=== PATIENT | male | born 1975 | race Caucasian/White ===

== ENCOUNTER 2021-11-17 05:39 | Outpatient (CLI) | payer OTHER ==
[~2021-11-17] VITALS: Ht 182.9 cm; Wt 83.9 kg
[2021-11-17] MEDS ORDERED: LAMO250T PO (10:20)
== END 2021-11-17 10:24 | disposition home or self-care (01) ==
LOC: PREOP 05:39
PROVIDERS: ATTEND Surgery
DX: Z01.818 Encounter for other preprocedural examination (principal)

== ENCOUNTER 2021-11-25 12:54 | Day surgery (SDC) | payer OTHER ==
[~2021-11-25] VITALS: Ht 182.9 cm; Wt 83.9 kg
[~2021-11-25 12:54] MED LIST: LAMO250T PO
[2021-11-25] MEDS ORDERED: LACTATED RINGERS 1,000 ML IV STA (12:56)
[2021-11-25 13:14] VITALS: BP 134/89
[2021-11-25] MEDS ORDERED: PROPOFOL INJECTION 50 ML IV ONE (13:15)
--- NOTE | 2021-11-25 13:59 | Discharge Inst-Simple/Standard ---
Discharge Inst-Standard Patient Instructions/Follow Up Plan of Care/Instructions/FU: 2 weeks Jacinto Activity as Tolerated: Yes Discharge Diet: Regular Diet ALONSO RODRÍGUEZ DO Nov 25, 2021 13:59
--- NOTE | 2021-11-25 14:01 | Progress Note-Post Operative ---
Post-Operative Progess Note Surgeon (s)/Resource Specialist Teacher (s) Surgeon ALONSO RODRÍGUEZ DO Resource Specialist Teacher: none Pre-Operative Diagnosis Hematochezia, lower abdominal pain Post-Operative Diagnosis Colon polyps x2, posterior anal fissure Procedure & Operative Findings Date of Procedure 11/25/21 Procedure Performed/Findings Colonoscopy with hot biopsy polypectomy x2 Anesthesia Type per anesthesiologist Estimated Blood Loss Estimated blood loss (mL): none Specimens/Packing Specimens Removed Sigmoid polyp x1, rectal polyp x1. ALONSO RODRÍGUEZ DO Nov 25, 2021 14:01
[2021-11-25 14:02] VITALS: BP 99/65
[2021-11-25 14:25] VITALS: BP 111/63
--- NOTE | 2021-11-25 14:50 | Anesthesia-General Post-Op ---
MAC Patient Condition Mental Status/LOC: Same as Preop Cardiovascular: Satisfactory Nausea/Vomiting: Absent Respiratory: Satisfactory Pain: Controlled Complications: Absent Post Op Complications Complications None Follow Up Care/Instructions Patient Instructions None needed. Anesthesiology Discharge Order Discharge Order Patient was doing well after the procedure with no complaints, stable vital signs, no apparent adverse anesthesia problems. APURVA BALDWIN DO Nov 25, 2021 14:50
--- NOTE | 2021-11-25 18:32 | OPERATIVE REPORT ---
DATE OF SERVICE: 11/25/2021 PREOPERATIVE DIAGNOSIS: Hematochezia. POSTOPERATIVE DIAGNOSES: Sigmoid and rectal polyp and small posterior anal fissure. SURGEON: Alonso Casey DO. ANESTHESIA: Per MDA. PROCEDURES PERFORMED: Colonoscopy with hot biopsy polypectomy x2. INDICATIONS For Procedure: The patient is a 46-year-old male with some hematochezia. He understands the risks and benefits of the procedure and wishes to proceed. Consent was signed in the chart. DESCRIPTION OF PROCEDURE: The patient was taken to the endoscopy suite and placed in the left lateral recumbent position. A timeout was performed. Digital rectal exam was performed. There was a very small superficial anal fissure. No palpable polyps or masses present. Scope was inserted in the rectum, advanced all the way to the cecum with minimal difficulty. Prep was adequate. Scope was then slowly retracted back. No polyps, masses or ulcerations within the cecum, ascending, transverse, and descending colon. In the sigmoid colon, a very small polyp was present, which hot biopsy polypectomy was performed. Scope was then continuously and slowly retracted back into the rectum, where another very small polyp was present, which hot biopsy polypectomy was performed. Scope was retroflexed noting no other pathology. Scope was returned to its normal position, slowly withdrawn until completely removed. The patient tolerated the procedure well without complications and taken to recovery room in stable condition. RECOMMENDATIONS: The patient will need repeat colonoscopy in 5 years. Any issues before that be seen at that time. The patient with fissure. We would recommend keeping the stool soft and do high fiber diet. The patient will follow up in the office in couple of weeks to reevaluate overall condition. Job ID: [id number] DocumentID: [id number] Dictated Date: 11/25/2021 14:01:04 Gunstock Repairer Date: 11/25/2021 18:32:24 Dictated By: ALONSO CASEY DO
== END 2021-11-25 14:39 | disposition home or self-care (01) ==
LOC: ENDO 12:54
PROVIDERS: ATTEND Surgery
DX: K63.5 Polyp of colon (principal); K62.1 Rectal polyp; K60.2 Anal fissure, unspecified
CPT/HCPCS: 88305

== ENCOUNTER → 2021-12-15 | Outpatient (CLI) | payer OTHER ==
[~2021-12-15] MED LIST changes: +BARIUM SUSPENSION 2.1% (VANILLA SILQ) 450 ML PO ONE; +CATHETER FLUSH 10 ML SYR IV PRN; +HOLD METFORMIN - RECEIVED CONTRAST 20 ML VIAL IV SCH; +IOHEXOL 350 MG/ML 100 ML (OMNIPAQUE 350) VIAL IV ONE; +NS 100 ML (IVPB) BAG IV ONE
--- NOTE | 2021-12-15 09:36 | Diagnostic Imaging Report ---
EXAMINATION: CT abdomen and pelvis with intravenous contrast. TECHNIQUE: Multiple contiguous axial images were obtained through the abdomen and pelvis after the uneventful administration of intravenous contrast. All CT scans use one or more of the following dose optimizing techniques: automated exposure control, MA and/or KvP adjustment based on patient size and exam type or iterative reconstruction. HISTORY: Abdominal pain. COMPARISON: None available. FINDINGS: Limited views of the lower thorax are unremarkable. There are few tiny low attenuating liver lesions are likely cysts but too small to characterize. There is no biliary ductal dilation. Gallbladder is normal. Pancreas is normal. Spleen is normal. Adrenal glands are normal. The kidneys are normal. There is no hydronephrosis. Urinary bladder is normal. Bowel is normal in caliber without obstruction or inflammation. Small amount of free fluid is present in the pelvis. No free air. No abdominal or pelvic lymphadenopathy. Aorta is normal in caliber without aneurysm. There are no suspicious osseous lesions. IMPRESSION: 1. No acute abnormality in the abdomen or pelvis. Dictated by: Dictated on workstation # [id number]
== END ==
LOC: RAD 09:08
PROVIDERS: ATTEND Surgery
DX: R10.84 Generalized abdominal pain (principal)
CPT/HCPCS: 74177

== ENCOUNTER 2022-03-08 05:31 | Outpatient (CLI) | payer OTHER ==
[~2022-03-08] VITALS: Ht 182.8 cm; Wt 87.7 kg
[~2022-03-08 05:31] MED LIST changes: -BARIUM SUSPENSION 2.1% (VANILLA SILQ) 450 ML PO ONE; -CATHETER FLUSH 10 ML SYR IV PRN; -HOLD METFORMIN - RECEIVED CONTRAST 20 ML VIAL IV SCH; -IOHEXOL 350 MG/ML 100 ML (OMNIPAQUE 350) VIAL IV ONE; -NS 100 ML (IVPB) BAG IV ONE
== END 2022-03-09 10:50 | disposition home or self-care (01) ==
LOC: PREOP 05:31
PROVIDERS: ATTEND Surgery
DX: Z01.818 Encounter for other preprocedural examination (principal)

== ENCOUNTER 2022-03-16 06:09 | Day surgery (SDC) | payer OTHER ==
[~2022-03-16] VITALS: Ht 182 cm; Wt 87.7 kg
[2022-03-16] VITALS (10 sets, daily range): BP systolic 102–140; BP diastolic 67–86
[2022-03-16] MEDS ORDERED: ceFAZolin 2 GM IV Premixed 50 ML IV ONE (06:15)
[2022-03-16] MEDS ORDERED: FAMOTIDINE 20MG/2ML IV (PEPCID) IV ONE (07:15)
[2022-03-16] MEDS ORDERED: SCOPOLAMINE 1.5 MG (TRANSDERM-SCOP) PATCH TOP ONE (07:15)
[2022-03-16] MEDS ORDERED: ONDANSETRON 4 MG/2 ML (SDV) Z0FRAN IV ONE (07:15)
[2022-03-16] MEDS ORDERED: ONDANSETRON 4 MG/2 ML (SDV) Z0FRAN ONE ×3 (07:19→10:36)
[2022-03-16] MEDS ORDERED: SEVOFLURANE (ULTANE) 15 ML INHAL SOLN ONE ×3 (07:19→10:04)
[2022-03-16] MEDS ORDERED: LIDOCAINE PF 2% 5 ML (XYLOCAINE) VIAL ONE (07:19)
[2022-03-16] MEDS ORDERED: proPOfol 200 MG/20 ML (DIPRIVAN) VIAL IV ONE (07:19)
[2022-03-16] MEDS ORDERED: fentaNYL INJ 100 MCG/2 ML AMP ONE (07:20)
[2022-03-16] MEDS ORDERED: MIDAZOLAM 2 MG/2 ML (VERSED) VIAL ONE (07:20)
[2022-03-16] MEDS ORDERED: LIDOCAINE/EPI 2% 1:200,00 (XYLOCAINE) 20 ML VIAL ONE (07:21)
[2022-03-16] MEDS ORDERED: SCOPOLAMINE 1.5 MG (TRANSDERM-SCOP) PATCH ONE (07:26)
[2022-03-16] MEDS ORDERED: FAMOTIDINE 20MG/2ML IV (PEPCID) ONE (07:27)
[2022-03-16] MEDS: LACTATED RINGERS 1,000 ML IV PRN ×3 (07:34→12:23)
[2022-03-16] MEDS ORDERED: ROCURONIUM 50 MG/5 ML (ZEMURON) VIAL IV ONE (08:40)
[2022-03-16] MEDS ORDERED: GLYCOPYRROLATE 0.2 MG/ML (ROBINUL) 2 ML VIAL ONE (10:03)
[2022-03-16] MEDS ORDERED: NEOSTIGMINE (BLOXIVERZ ) 1 MG/1ML 10 ML VIAL ONE (10:03)
--- NOTE | 2022-03-16 10:05 | Progress Note-Post Operative ---
Post-Operative Progess Note Surgeon (s)/Print Shop Manager (s) Surgeon ALONSO RODRÍGUEZ DO Print Shop Manager: Dr. Sorenson Pre-Operative Diagnosis LEFT INGUINAL HERNIA Post-Operative Diagnosis direct,indirect, femoral hernia, cord lipoma Procedure & Operative Findings Date of Procedure 03/16/22 Procedure Performed/Findings robotic left direct,indirect,femoral hernia repair, excision cord lipoma Anesthesia Type general Estimated Blood Loss Estimated blood loss (mL): minimal Specimens/Packing Specimens Removed left cord lipoma ALONSO RODRÍGUEZ DO Mar 16, 2022 10:05
[2022-03-16] MEDS ORDERED: ACHD5005 PO (10:06)
[2022-03-16] MEDS ORDERED: DOCU-143 PO (10:06)
--- NOTE | 2022-03-16 10:10 | Discharge Inst-Simple/Standard ---
Discharge Inst-Standard Discharge Medications New, Converted or Re-Newed RX: Transmitted to Pharmacy Patient Instructions/Follow Up Plan of Care/Instructions/FU: 2 weeks Jacinto Activity as Tolerated: No Discharge Diet: Regular Diet Other Inst to Patient Follow up Appt: Make appointment for 2 week. Instructions: No lifting greater than 10 pounds. No strenuous activity. May shower in 24 hours, no tub bath or soaking. Use incentive spirometer at home as directed. No Smoking Skin/Wound Care: You have special glue over your incision that will fall off on it's own. Symptoms to Report: Appetite Changes, Extremity Discoloration, Numbness/Tingling, Swelling Increased, Bleeding Excessive, Eyesight Changes, Pain Increased, Urine Color Change, Constipation(Persistent), Fever over 101 degree F, Pain/Pressure in chest, Urinating Difficulty, Cough Up/Vomit Blood, Heart Beat Irreg/Pounding, Pain/Pressure in jaw, Vaginal Bleeding Increase, Cramps in feet or legs, Lightheadedness, Pain/Pressure in shoulder, Diarrhea(Persistent), Memory Changes Suddenly, Questions/Concerns, Weight gain consecutive days, Dizziness/Fainting, Nausea/Vomiting, Shortness of Breath, Weight gain over 2 pounds If questions or concerns contact your physician Or seek help at emergency department. ALONSO RODRÍGUEZ DO Mar 16, 2022 10:10
--- NOTE | 2022-03-16 10:14 | Anesthesia-General Post-Op ---
General Patient Condition Mental Status/LOC: Same as Preop Cardiovascular: Satisfactory Nausea/Vomiting: Absent Respiratory: Satisfactory Pain: Controlled Complications: Absent Post Op Complications Complications None Follow Up Care/Instructions Patient Instructions None needed. Anesthesia/Patient Condition Patient Condition Patient is doing well, no complaints, stable vital signs, no apparent adverse anesthesia problems. No complications reported per nursing. MAICOL LYLES CRNA Mar 16, 2022 10:14
[2022-03-16] MEDS: ONDANSETRON 4 MG/2 ML (SDV) Z0FRAN IVP PRN ×2 (10:40→12:24)
[2022-03-16] MEDS ORDERED: morphine INJ 10 MG/ML 1ML (SYR OR VIAL) IVP ONE (10:45)
[2022-03-16] MEDS ORDERED: MEPERIDINE (DEMEROL) INJ 50 MG/ML IVP ONE (10:45)
[2022-03-16] MEDS ORDERED: fentaNYL INJ 100 MCG/2 ML AMP IVP ONE (10:45)
--- NOTE | 2022-03-17 04:02 | OPERATIVE REPORT ---
DATE OF SERVICE: 03/16/2022 PREOPERATIVE DIAGNOSIS: Left inguinal hernia. POSTOPERATIVE DIAGNOSES: Direct and indirect, femoral hernias and cord lipoma on left. PROCEDURES: Robotic left direct, indirect, femoral hernia repair, excision of cord lipoma. SURGEON: Alonso Casey DO PHOTOGRAPH PRINTER: Dr. Sorenson, assisted in retraction, dissection and closure. ESTIMATED BLOOD LOSS: Minimal. COMPLICATIONS: None. INDICATIONS: The patient is a 47-year-old male who presents with a left inguinal hernia. He understands risks and benefits of procedure and wishes to proceed. Consent was signed in the chart. DESCRIPTION OF PROCEDURE: The patient was taken down to the operating suite, prepped and draped in sterile fashion. Timeout was performed. Local anesthetic was infiltrated above the umbilicus, 11 blade scalpel was used to make a small skin incision. Cautery was used to dissect down through the fascia, which was scored and opened. An 0 Vicryl was placed in a ababgy-fe-ghibg fashion for closure at the end of the case. A bhatia trocar was inserted and pneumoperitoneum was achieved. Under direct visualization of the laparoscope, an 8 mm trocar was placed in both right and left lateral aspects to the 12 mm trocar. The abdomen was then inspected. Some adhesions to the right upper abdominal wall that was omentum. The ileocecal valve was then ran from the small bowel inspecting proximally looking for a Meckel's, no Meckel's was located. The pelvis was inspected. The patient with a left visible direct and indirect defect. The robot was then docked. Scissors were then used to dissect down through the peritoneum and release of flexion dividing down to the Jeremy's ligament. Once this was encountered, dissection was moved laterally. There was a direct and indirect defect present. These were dissected free and continued the dissection inferiorly and laterally toward the inferior line was 2 cm below the Jeremy's ligament. There was a cord lipoma present, this was excised with scissors. Also noting a femoral hernia defect, which had contained little bit of fat, which was able to be removed also without difficulty. The extra-large mesh was then inserted into the pocket that was created and secured to Jeremy's ligament with 3-0 Vicryl and also to the lateral superior aspect of the mesh was also tacked in one location for hold the placement. The peritoneum was then closed using a 3-0 V-Loc in a running fashion. A small defect in the peritoneum was present. So 3-0 Vicryl was also used to close this defect. The suture needles were all removed and the abdomen was then desufflated, the trocars were removed. The 0 Vicryl placed at the beginning of the case was then tied closing the 12 mm fascial defect. Skin was then closed using 4-0 Monocryl in subcuticular fashion. The abdomen was then washed and dried. Skin Affix was placed over the incisions. The patient tolerated the procedure well without any complications, taken to recovery room in stable condition. Job ID: [id number] DocumentID: [id number] Dictated Date: 03/16/2022 20:56:20 Video Production Assistant Date: 03/17/2022 04:00:28 Dictated By: ALONSO CASEY DO
== END 2022-03-16 13:40 | disposition home or self-care (01) ==
LOC: SDC 06:09
PROVIDERS: ATTEND Surgery
DX: K41.90 Unilateral femoral hernia, without obstruction or gangrene, not specified as recurrent (principal); D17.6 Benign lipomatous neoplasm of spermatic cord; Z28.311 Partially vaccinated for COVID-19; K92.1 Melena
CPT/HCPCS: 49659; 55559; 87081; 94664; C1781